=== PATIENT | male | born 2005 | race Two or more races ===

== ENCOUNTER → 2025-04-15 | Emergency (ER) | payer OTHER ==
[~2025-04-15] VITALS: Ht 177.8 cm; Wt 63.5 kg
[~2025-04-15] MED LIST: ABILIFY5 MG PO; PIPERACILLIN/TAZOBACTAM SODIUM 3.375 GM VIAL IV ONE; PIPERACILLIN/TAZOBACTAM SODIUM 3.375 GM in 0.9 % SODIUM CHLORIDE 100 ML IV SCH; ZOLOFT100 MG PO
[2025-04-15 13:54] LABS: BASO % 0.5 % (0.1-1.2); EOS # 0.03 (0.04-0.54); EOS % 0.3 % (0.7-7.0); LYMPH # 1.77 (1.18-3.74); LYMPH % 16.1 % (19.3-53.1); MEAN PLATELET VOLUME 9.40 fl (9.4-12.4); MONO # 0.65 (0.24-0.82); MONO % 5.9 % (4.7-12.5); NEUT # 8.44 (1.56-6.13); NEUT % 77.0 % (34.0-71.1); RED CELL DISTRIBUTION WIDTH 12.3 % (11.6-14.4)
[2025-04-15 17:38] LABS: ALT/SGPT 35.0 U/L (12-78); AST/SGOT 10.0 U/L (15-37); BILIRUBIN TOTAL 0.38 mg/dL (0.3-1.2); BUN CREA RATIO 13.0 (7.0-25.0); CREATININE SERUM 0.86 mg/dL (0.70-1.30); GFR 113.37; GLOBULINA 3.6 G/DL (2.4-3.5); GLUCOSE FASTING 106.0 mg/dL (65-100); OSMOLALITY SERUM 285.0 MOSM/KG (275-295)
== END | disposition home or self-care (01) ==
LOC: ER 11:47 → EMR PED 12:16 → ER 12:16
PROVIDERS: Emergency Medicine Pediatric Emergency Medicine; Pediatrics
DX: N44.00 Torsion of testis, unspecified (principal); N45.1 Epididymitis; N50.819 Testicular pain, unspecified